=== PATIENT | female | born 1995 | race Caucasian/White ===

== ENCOUNTER 2016-10-31 17:22 | Emergency (ER) | payer OTHER ==
[2016-10-31 17:35] VITALS: TEMP 97.9
--- NOTE | 2016-10-31 18:43 | EDPHY ---
H & P Stated Complaint: dislocated knee, pt wants MRI, came from [facility]. Source: Patient Exam Limitations: No limitations - Personal History LMP (Females 10-55): 22-28 Days Ago Current Tetanus/Diphtheria Vaccine: Yes Current Tetanus Diphtheria and Acellular Pertussis (TDAP): Yes - Medical/Surgical History Hx Asthma: No Hx Chronic Respiratory Disease: No Hx Diabetes: No Hx Cardiac Disease: No Hx Renal Disease: No Hx Cirrhosis: No Hx Alcoholism: No Hx HIV/AIDS: No Hx Splenectomy or Spleen Trauma: No Other PMH: pmh: irreg period. psh:none - Social History Smoking Status: Current some day smoker HPI/ROS: CHIEF COMPLAINT: Knee pain HISTORY OF PRESENT ILLNESS: Patient complains of knee pain on the right side that started a week of September 16. 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 She would was throwing her baton when he came down and struck her in the right knee, medially. She noted a sudden onset of mild pain. This steadily worsened over the next week or 2. She noted some catching and clicking. She also thought she saw the patella slide laterally them back in. She has had this happen in the past when she was younger. Since then she has had ongoing pain. It comes and goes. [id number]. There are times of relief. It does occasionally clicking catch. She was seen on campus at [facility] the week of the injury. They performed an x-ray that was reportedly normal. She was referred to sports medicine physician but did not follow up with him as she felt it was too long to wait. She now is here asking for MRI or further care. She has no new injury. No numbness or tingling. No redness. No fever. No difficulty bending or straining the knee. No other associated complaints or modifying factors. PRIOR ORTHO INJURIES: Previous knee cap dislocation ESTABLISHED ORTHOPEDIST: None REVIEW OF SYSTEMS: Ten systems reviewed and are negative unless otherwise noted in the HPI EXAMINATION General Appearance: Alert, no distress Cardiovascular: Pulses normal throughout. Symmetric DP and PT pulses are 2+. Brisk cap refill Neurological: A&O, sensory symmetric, strength symmetric. Normal proprioception of the great toe. Skin: Warm and dry, no rash. No lacerations abrasions or contusions. Extremities: Right lower extremity: Mild tenderness of the patella with lateral and medial stress. No laxity. No weakness. Negative drawer test. Negative Marcelino. Excellent strength in the right knee at 5/5 with extension and flexion. Neurovascular intact distally. Psychiatric: Mood and affect normal DIFFERENTIAL DIAGNOSES: Including but not limited to patella subluxation, patellar dislocation, patellar cartilage injury, meniscus injury MDM: 6:40 p.m. Right knee pain that started a week of September 16. This was a patellar dislocation versus subluxation. This was not a knee dislocation. Normal x-ray at [facility]. She did not follow up with the sports medicine team as she was requested to do. She is now here asking for referral. She is neurovascular intact. There is no outward signs of trauma or injury. I will refer her to Orthopedics for definitive care, likely MRI. She is comfortable this plan and discharged home stable condition. ED Precautions: Worsening pain. Erythema, edema, cyanosis, pallor, paresthesia or anesthesia. SUPERVISION: This patient was independently evaluated without direct examination by the attending physician. Case was discussed with attending physician. (Dean Hassan) Constitutional: Initial Vital Signs Temperature (C) 36.6 C 10/31/16 17:32 Heart Rate 68 10/31/16 17:32 Respiratory Rate 16 10/31/16 17:32 Blood Pressure 136/92 H 10/31/16 17:32 O2 Sat (%) 99 10/31/16 17:32 O2 Delivery Mode Room Air Allergies/Adverse Reactions: No Known Allergies Allergy (Unverified 02/23/14 02:35) Home Medications: Medication Instructions Recorded Control 02/23/14 Medical Decision Making Other Provider: The patient wasevaluatedand managed by themmnlevel provider. My co- signature indicates that dexter reviewed this chart and I agree with the findings and plan of care asdocumented. I am the secondary supervising physician. (Jamilah Holland) Departure - Departure Disposition: Home, Routine, Self-Care Clinical Impression: Knee pain, right, Patellar subluxation Condition: Good Instructions: Patellofemoral Pain Syndrome (ED), Patellar Dislocation (ED) Additional Instructions: Continue your home exercises as prescribed by physical therapy. Follow up with Orthopedics for definitive care. Return here for worsening pain or changes distally Referrals: LIZ,SANA [Other] - As per Instructions Brunilda Velasquez MD [Medical Doctor] - As per Instructions
[2016-10-31 19:00] VITALS: BP 107/64; PULSE 77; RESP 18; O2SAT 97
== END 2016-10-31 18:59 | disposition home or self-care (01) ==
DX: S83.004A Unspecified dislocation of right patella, initial encounter (principal); F17.200 Nicotine dependence, unspecified, uncomplicated; W22.8XXA Striking against or struck by other objects, initial encounter

== ENCOUNTER 2016-12-18 16:50 | Emergency (ER) | payer OTHER ==
[2016-12-18 16:56] VITALS: TEMP 98.4
--- NOTE | 2016-12-18 17:17 | EDPHY ---
H & P Stated Complaint: upper abd pain intermittent Time Seen by Provider: 12/18/16 16:59 HPI/ROS: CHIEF COMPLAINT: left-sided chest pain HISTORY OF PRESENT ILLNESS: 21-year-old female presents emergency department complaining of intermittent left-sided chest pain. Patient states she broke a rib 2 years ago and has had intermittent pain on the left side of her chest since this time. Patient reports she will get sharp shooting pains to her left lateral ribs every few weeks lasting a couple seconds, today she was concerned because this has happened a few times with deep breaths. Patient denies trauma. She quit smoking cigarettes 3 months ago, no recent travel. Patient denies fevers or chills, no cough, no shortness of breath. She denies abdominal pain, nausea or vomiting. Patient just finished a course of Macrobid and metronidazole for both a urinary tract infection and bacterial vaginosis. She states these symptoms have completely resolved. REVIEW OF SYSTEMS: A comprehensive 10 point review of systems is otherwise negative aside from elements mentioned in the history of present illness. Source: Patient Exam Limitations: No limitations - Personal History LMP (Females 10-55): IUD In Place Current Tetanus/Diphtheria Vaccine: Unsure Current Tetanus Diphtheria and Acellular Pertussis (TDAP): Unsure - Medical/Surgical History Hx Asthma: No Hx Chronic Respiratory Disease: No Hx Diabetes: No Hx Cardiac Disease: No Hx Renal Disease: No Hx Cirrhosis: No Hx Alcoholism: No Hx HIV/AIDS: No Hx Splenectomy or Spleen Trauma: No Other PMH: pmh: irreg period. psh:none - Social History Smoking Status: Former smoker Alcohol Use: Occasionally Drug Use: None - Physical Exam Exam: Physical Exam Gen: Alert and Oriented, NAD HEENT: PERRL, moist mucous membranes NECK: no meningismus CV: regular rate and regular rhythm Chest wall: Left anterior and lateral chest wall tenderness to palpation, no swelling, no ecchymosis PULM: CTAB, no wheezes ABDOMEN: soft, non tender to palpation, BS present BACK: No CVA tenderness NEURO: Neurologically grossly intact EXTREMITIES: normal appearing SKIN: no rash or break in skin on exposed skin PSYCH: answers questions appropriately. Constitutional: Initial Vital Signs Temperature (C) 36.9 C 12/18/16 16:55 Heart Rate 74 12/18/16 16:55 Respiratory Rate 16 12/18/16 16:55 Blood Pressure 119/84 H 12/18/16 16:55 O2 Sat (%) 96 12/18/16 16:55 O2 Delivery Mode Room Air Allergies/Adverse Reactions: No Known Allergies Allergy (Unverified 02/23/14 02:35) Home Medications: Medication Instructions Recorded Control 02/23/14 Medical Decision Making - Diagnostics Imaging Results: Imaging Impressions Chest X-Ray 12/18/16 17:16 Impression: No acute findings in the chest. ED Course/Re-evaluation: IV established, CBC, i-STAT, EKG, chest x-ray and D-dimer obtained. Patient has a mildly elevated white blood cell count at 11,000 with no left shift. EKG is unremarkable, chest x-ray normal and D-dimer is negative. ED urine dip is negative, urine is negative. The patient's chest wall pain is likely from inflammation of the cartilage between her ribs where she had the fracture. Patient was given 15 mg of IV Toradol. She will be discharged home with instructions to take ibuprofen every 8 hours with food for 3-5 days. Patient is comfortable this plan, she agrees to follow up with Work for continued symptoms and is given return precautions for any worsening symptoms. Differential Diagnosis: Diagnosis considered but not limited to costochondritis, inflammation of the cartilage, rib fracture, acute coronary syndrome, pulmonary embolism, pleurisy - Data Points Laboratory Results: Laboratory Results 12/18/16 17:10 12/18/16 12/18/16 12/18/16 17:11 17:10 17:10 WBC 11.89 10^3/uL H 10^3/uL (3.80-9.50) RBC 4.97 10^6/uL 10^6/uL (4.18-5.33) Hgb 15.3 g/dL g/dL (12.6-16.3) POC Hgb 16.7 gm/dL H gm/dL (12.6-16.3) Hct 45.7 % % (38.0-47.0) POC Hct 49 % H % (38-47) MCV 92.0 fL fL (81.5-99.8) MCH 30.8 pg pg (27.9-34.1) MCHC 33.5 g/dL g/dL (32.4-36.7) RDW 11.8 % % (11.5-15.2) Plt Count 319 10^3/uL 10^3/uL (150-400) MPV 9.9 fL fL (8.7-11.7) Neut % (Auto) 58.6 % % (39.3-74.2) Lymph % (Auto) 29.6 % % (15.0-45.0) [place] % (Auto) 8.9 % % (4.5-13.0) Eos % (Auto) 1.3 % % (0.6-7.6) Baso % (Auto) 1.1 % % (0.3-1.7) Nucleat RBC Rel Count 0.0 % % (0.0-0.2) Absolute Neuts (auto) 6.97 10^3/uL H 10^3/uL (1.70-6.50) Absolute Lymphs (auto) 3.52 10^3/uL H 10^3/uL (1.00-3.00) Absolute Monos (auto) 1.06 10^3/uL H 10^3/uL (0.30-0.80) Absolute Eos (auto) 0.15 10^3/uL 10^3/uL (0.03-0.40) Absolute Basos (auto) 0.13 10^3/uL H 10^3/uL (0.02-0.10) Absolute Nucleated RBC 0.00 10^3/uL 10^3/uL (0-0.01) Immature Gran % 0.5 % % (0.0-1.1) Immature Gran # 0.06 10^3/uL 10^3/uL (0.00-0.10) D-Dimer 0.32 ug/mLFEU ug/mLFEU (0.00-0.50) POC Sodium 140 mEq/L mEq/L (134-144) POC Potassium 3.7 mEq/L mEq/L (3.3-5.0) POC Chloride 102 mEq/L mEq/L (97-110) POC BUN 14 mg/dL mg/dL (7-23) POC Creatinine 0.7 mg/dL mg/dL (0.6-1.0) POC Glucose 77 mg/dL mg/dL (70-100) Point of Care Test Results: 12/18/16 17:11 POC Sodium 140 POC Potassium 3.7 POC Chloride 102 POC BUN 14 POC Creatinine 0.7 POC Glucose 77 Departure - Departure Disposition: Home, Routine, Self-Care Clinical Impression: Pain of anterior chest wall with respiration Condition: Good Instructions: Chest Wall Pain (ED) Additional Instructions: Take 600 mg of ibuprofen every 8 hours with food for 3-5 days. Ice to your chest. Follow-up with Work for continued symptoms. Return to the emergency department for worsening symptoms, new symptoms or concerns. Referrals: LIZ Underwood,. [Clinic] - As per Instructions
--- NOTE | 2016-12-18 17:25 | CPEKG ---
Heart Rate: 69 RR Interval: 870 P-R Interval: 140 QRSD Interval: 88 QT Interval: 412 QTC Interval: 442 P Dyer: -22 QRS Dyer: 3 T Wave Dyer: 51 EKG Severity - NORMAL ECG - EKG Impression: SINUS RHYTHM Electronically Signed By: Keira Case 18-Dec-2016 21:09:23
[2016-12-18 17:27] LABS: % IMMATURE GRANULYOCYTES 0.5 % (0.0-1.1); ABSOLUTE IMMATURE GRANULOCYTES 0.06 10^3/uL (0.00-0.10); ADD DIFF? NO; ADD MORPH? NO; ADD SCAN? NO; ATYPICAL LYMPHOCYTE FLAG 10 (0-99); FRAGMENT RBC FLAG 0 (0-99); HEMATOCRIT 45.7 % (38.0-47.0); HEMOGLOBIN 15.3 g/dL (12.6-16.3); LEFT SHIFT FLG 0 (0-99); LIPEMIA HEMOLYSIS FLAG 80 (0-99); MEAN CELL HEMOGLOBIN 30.8 pg (27.9-34.1); MEAN CELL HEMOGLOBIN CONCENTR. 33.5 g/dL (32.4-36.7); MEAN PLATELET VOLUME 9.9 fL (8.7-11.7); PLATELET CLUMPS FLAG 0 (0-99); PLATELET COUNT 319 10^3/uL (150-400); RED BLOOD CELL COUNT 4.97 10^6/uL (4.18-5.33); RED CELL DISTRIBUTION WIDTH 11.8 % (11.5-15.2)
[2016-12-18] MEDS ORDERED: KETOROLAC 15 MG/1 ML SDV IVP ONE (18:05)
[2016-12-18] MEDS ORDERED: KETOROLAC 15 MG/1 ML SDV ONE (18:29)
[2016-12-18 18:47] VITALS: BP 116/64; PULSE 72; RESP 18; O2SAT 98
== END 2016-12-18 18:46 | disposition home or self-care (01) ==
DX: R07.1 Chest pain on breathing (principal); Z87.891 Personal history of nicotine dependence
CPT/HCPCS: 82947-QW; 96374; J1885

== ENCOUNTER 2017-02-02 19:35 | Emergency (ER) | payer OTHER ==
[2017-02-02 19:41] VITALS: RESP 16; TEMP 98.1
--- NOTE | 2017-02-02 20:36 | EDPHY ---
H & P Smoking Status: Former smoker Time Seen by Provider: 02/02/17 19:48 HPI/ROS: CHIEF COMPLAINT: right knee pain HISTORY OF PRESENT ILLNESS: 21-year-old female presents emergency department complaining of acute on chronic right knee pain. Patient reports she dislocated her patella in August and has had intermittent problems since this time. She had an MRI 2 weeks ago after seeing an orthopedist and has a MRI review tomorrow. Patient states today her pain was worse. She states she is unable to weight bear without pain. No new symptoms. No numbness or tingling in this leg. (Anisa Hamilton) Physical Exam: GEN: Awake, alert, oriented, no acute distress RESP: nl resp effort MSK: Right knee with full active range of motion, no swelling, lateral joint line tenderness, positive varus stress, 2+ pedal pulses, sensation intact to light touch SKIN: no break in skin (Anisa Hamilton) Constitutional: Initial Vital Signs Temperature (C) 36.7 C 02/02/17 19:38 Heart Rate 65 02/02/17 19:38 Respiratory Rate 16 02/02/17 19:38 Blood Pressure 118/78 02/02/17 19:38 O2 Sat (%) 94 02/02/17 19:38 O2 Delivery Mode Room Air Allergies/Adverse Reactions: No Known Allergies Allergy (Unverified 02/23/14 02:35) Home Medications: Medication Instructions Recorded NK [No Known Home Meds] 02/02/17 MDM/Departure - [facility] ED Course/Re-evaluation: I did not see this patient while she was in the emergency department. However her care was discussed with the nurse practitioner while the patient was in the department. I agree with treatment plan and management (Irineo Jay) - Depart Disposition: Home, Routine, Self-Care Clinical Impression: Right knee sprain Qualifiers: Encounter type: initial encounter Involved ligament of knee: unspecified ligament Qualified Code(s): S83.91XA - Sprain of unspecified site of right knee , initial encounter Condition: Good Instructions: Knee Sprain (ED) Additional Instructions: Rest, ice, elevate. Take 600mg of ibuprofen every 8 hours for 3-5 days as needed for pain. Wear knee immobilizer and use crutches until your follow-up appointment with the orthopedist tomorrow. Referrals: Alexsandra West MD [Medical Doctor] - As per Instructions
[2017-02-02 21:05] VITALS: BP 117/75; PULSE 58; O2SAT 96
== END 2017-02-02 21:05 | disposition home or self-care (01) ==
DX: S83.91XA Sprain of unspecified site of right knee, initial encounter (principal); Z87.891 Personal history of nicotine dependence; X58.XXXA Exposure to other specified factors, initial encounter
CPT/HCPCS: L1830

== ENCOUNTER 2018-07-27 16:17 | Emergency (ER) | payer OTHER ==
--- NOTE | 2018-07-27 16:51 | EDPHY ---
H & P Stated Complaint: 2 months of generalized/upper abd pain denies n/v or diarrhea Time Seen by Provider: 07/27/18 16:29 HPI/ROS: CHIEF COMPLAINT: Upper abdominal pain HISTORY OF PRESENT ILLNESS: 22-year-old female presents with a 2 month history of upper abdominal pain. Intermittent epigastric pain for 2 months. The pain is sharp and stabbing, mild and lasts approximately 1 min. Able to continue usual activities during brief episode of pain. No pain now. Occasionally associated with nausea. No diarrhea, constipation, fever or other associated symptoms. Has an IUD in place, does not have menstrual periods. No vaginal discharge. REVIEW OF SYSTEMS: complete 10 point ROS reviewed and is negative except for the noted elements in the HPI - Personal History LMP (Females 10-55): IUD In Place Current Tetanus Diphtheria and Acellular Pertussis (TDAP): Yes - Medical/Surgical History Hx Asthma: No Hx Chronic Respiratory Disease: No Hx Diabetes: No Hx Cardiac Disease: No Hx Renal Disease: No Hx Cirrhosis: No Hx Alcoholism: No Hx HIV/AIDS: No Hx Splenectomy or Spleen Trauma: No Other PMH: pmh: irreg period. psh: none - Social History Smoking Status: Former smoker Alcohol Use: Occasionally Drug Use: None - Physical Exam Exam: General Appearance: Alert, pleasant Eyes: Pupils equal and round, no conjunctival pallor ENT, Mouth: Mucous membranes moist Neck: Normal inspection Respiratory: Lungs are clear to auscultation Cardiovascular: Regular rate and rhythm Gastrointestinal: Abdomen is soft and nontender Neurological: A&O, nonfocal, normal gait Skin: Warm and dry Extremities: Normal inspection Psychiatric: Mood and affect normal Constitutional: Initial Vital Signs Temperature (C) 36.7 C 07/27/18 16:20 Heart Rate 60 07/27/18 16:20 Respiratory Rate 18 07/27/18 16:20 Blood Pressure 125/67 H 07/27/18 16:20 O2 Sat (%) 99 07/27/18 16:20 O2 Delivery Mode Room Air Allergies/Adverse Reactions: No Known Allergies Allergy (Verified 07/27/18 16:20) Home Medications: Medication Instructions Recorded NK [No Known Home Meds] 02/02/17 Medical Decision Making ED Course/Re-evaluation: This patient presents vents with intermittent abdominal pain of very brief duration. Abdominal exam is benign. Laboratory tests are unremarkable. Possibly secondary to intestinal cramping. No evidence of PUD, pancreatitis or other serious etiology. I do not feel that further ED evaluation or imaging is indicated. Patient strongly encouraged to follow up with PCP. Differential Diagnosis: Differential diagnosis includes though it is not limited to appendicitis, cholecystitis, diverticulitis, pyelonephritis, bowel perforation, small bowel obstruction. - Data Points Laboratory Results: Laboratory Results 07/27/18 16:50 07/27/18 16:50 Departure - Departure Disposition: Home, Routine, Self-Care Clinical Impression: Abdominal pain Qualifiers: Abdominal location: epigastric Qualified Code(s): R10.13 - Epigastric pain Condition: Good Instructions: Acute Abdominal Pain (ED) Additional Instructions: Return for worsening symptoms or any concerns. Referrals: Beatriz Izaguirre MD [Medical Doctor] - As per Instructions
[2018-07-27 17:09] LABS: PLATELET COUNT 300 10^3/uL (150-400)
[2018-07-27 17:43] VITALS: BP 105/78
== END 2018-07-27 17:43 | disposition home or self-care (01) ==
DX: R10.31 Right lower quadrant pain (principal)